=== PATIENT | female | born 1980 ===

== ENCOUNTER 2024-09-16 11:12 | Outpatient (CLI) | payer OTHER | END 2024-09-16 11:16 | disposition home or self-care (01) | LOC: EDBD 11:12 → MAMO-SONO 11:12 | PROVIDERS: ATTEND Obstetrics & Gynecology | DX: R10.2 Pelvic and perineal pain (principal); N60.11 Diffuse cystic mastopathy of right breast; N60.12 Diffuse cystic mastopathy of left breast ==